=== PATIENT | male | born 1985 | race African-American/Black ===

== ENCOUNTER 2017-02-01 19:20 | Emergency (ER) | payer OTHER ==
[~2017-02-01] VITALS: Ht 175.3 cm; Wt 88.2 kg
[2017-02-01 19:26] VITALS: TEMP 37; Ht 175.3 cm; Wt 88.2 kg
[2017-02-01] MEDS ORDERED: SERT-234 PO (19:34)
[2017-02-01] MEDS ORDERED: PERP1TAB PO (19:34)
[2017-02-01] MEDS ORDERED: SERT50TA PO (19:34)
[2017-02-01] MEDS ORDERED: BND25 PO (19:34)
[2017-02-01] MEDS ORDERED: PERP1TAB11 PO (19:34)
[2017-02-01] MEDS ORDERED: IBUP-1428 PO (19:34)
--- NOTE | 2017-02-01 19:35 | EMERGENCY ROOM VISIT NOTE ---
History Report prepared by [employer]: Dorina Guido Under the Supervision of: Dr. Josemanuel Carter M.D. First contact with patient: 19:28 Chief Complaint: FALL Stated Complaint: FALL, BACK PAIN History of Present Illness The patient is a 31 year old male who presents to the Emergency Room with complaints of a fall that occurred prior to arrival. He was brought to ED via EMS from [facility]. He admits to a recent ankle injury while playing basketball this past weekend and he was given crutches to get around. Today he was walking down some stairs and fell down approximately 6 steps. He admits he hit his head during the fall, but denies any LOC. He currently complains of lower right sided back pain and states the right side of his buttocks feels numb. He denies any neck pain or abdominal pain. He denies any chest pain but admits his back pain is worse with inspiration. 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 A total of 10 systems reviewed and were otherwise negative. Past Medical & Surgical Medical Problems: (1) Depression Social History Alcohol Use: none Drug Use: none Marital Status: single Housing Status: other ([facility]) Occupation Status: unemployed Current/Historical Medications Scheduled Diphenhydramine Hcl (Benadryl), 150 MG PO HS Perphenazine (Trilafon), 4 MG PO BID Perphenazine (Trilafon), 8 MG PO BID Sertraline (Zoloft), 100 MG PO DAILY Sertraline (Zoloft), 50 MG PO HS Scheduled PRN Ibuprofen (Motrin), 800 MG PO TID PRN for Pain Allergies Coded Allergies: No Known Allergies (Unverified , 02/01/17) Physical Exam Vital Signs Date Time Temp Pulse Resp B/P (MAP) Pulse Ox O2 Delivery O2 Flow Rate FiO2 02/01/17 21:30 88 16 145/78 98 02/01/17 19:26 37.0 89 18 156/100 98 Room Air Physical Exam GENERAL: Patient is a healthy-appearing well-nourished 31 year old male HEAD: Normocephalic atraumatic EYES: Ocular movements intact pupils equal and react to light OROPHARYNX mucous membranes are moist no exudates present no erythema or edema present NECK: Supple no nuchal rigidity CHEST: Good equal expansion LUNGS: Clear and equal to auscultation CARDIAC: Normal S1 and S2 ABDOMEN: Soft nontender no guarding BACK: No CVA tenderness EXTREMITIES: No pain upon palpation normal muscle strength in all groups no clubbing cyanosis or edema NEURO: Patient is following commands is answering questions appropriately. Alert and oriented x3 Cranial Nerves 2-12 grossly intact Medical Decision & Procedures ER Provider Diagnostic Interpretation: Radiology results as stated below per my review and radiologist interpretation: CT LUMBAR SPINE WITHOUT CT DOSE: CLINICAL HISTORY: Lumbar spine pain status post trauma TECHNIQUE: Helical images were acquired in transverse plane. Reformatted sagittal and coronal images were reviewed. A dose lowering technique was utilized adhering to the principles of ALARA. CONTRAST: No contrast was administered COMPARISON STUDY: None. FINDINGS: L1-2 level: There is no evidence of significant disc bulge or focal herniation. There is no evidence of spinal or foraminal stenosis. L2-3 level: There is no evidence of significant disc bulge or focal herniation. There is no evidence of spinal or foraminal stenosis. L3-4 level: There is no evidence of significant disc bulge or focal herniation. There is no evidence of spinal or foraminal stenosis. L4-5 level: There is no evidence of significant disc bulge or focal herniation. There is no evidence of spinal or foraminal stenosis. L5-S1 level: There is no evidence of significant disc bulge or focal herniation. There is no evidence of spinal or foraminal stenosis. No fractures or subluxations are visualized. IMPRESSION: No fractures or subluxations are visualized. Electronically signed by: Bernardino Trujillo M.D. 02/01/2017 8:[address] PELVIS NO IV/ORAL CONT (CT) CT DOSE: 1120.39 mGy.cm CLINICAL HISTORY: Pelvic pain status post trauma TECHNIQUE: Helical images were acquired through the pelvis. Sagittal and coronal reformatted images were acquired. A dose lowering technique was utilized adhering to the principles of ALARA. COMPARISON STUDY: None. FINDINGS: The visualized portions of the appendix appear normal. There is no free pelvic fluid. There is no free intraperitoneal air. There is no SI joint diastases. There is no symphysis diastases. No pelvic or sacral fractures are visualized. No hip fractures are visualized. There are no dislocations. IMPRESSION: No acute fractures. Electronically signed by: Bernardino Trujillo M.D. 02/01/2017 8:17 PM Medications Administered Medications (Trade) Dose Ordered Sig/Deepak Route Start Time Stop Time Status Last Admin Dose Admin Acetaminophen (Tylenol Tab) 1,000 mg NOW STAT PO 02/01/17 19:36 02/01/17 19:38 DC 02/01/17 19:36 1,000 MG ED Course 1928: Past medical records reviewed. The patient was evaluated in room C3. A complete history and physical examination was performed. 1935: Acetaminophen 1000 mg PO. 2114: I reevaluated the patient. He is feeling well and resting comfortably. I discussed his results and discharge instructions and he verbalized complete understanding and agreement. Medical Decision Prior records/ancillary studies reviewed. Triage Nursing notes reviewed. The patient's history was concerning for traumatic injury Differential diagnosis: Etiologies such as fracture, dislocation, intra-abdominal, pneumothorax, intrathoracic , intracranial, neurologic, as well as other traumatic pathologies were entertained. This is a 31-year-old male who presents emergency department after fall downstairs. He has no bruising present. Patient was sent for CAT scan of his lower lumbar spine as well as his pelvis. C-spine was cleared using Nexus criteria. The patient does not appear to have any injuries on CAT scan. Serial abdominal examinations were performed on the patient in the emergency department and at no time did the patient exhibited a surgical abdomen. Based on these findings I feel that the patient as well as to be discharged home for follow-up with his primary care physician. Patient was in agreement with the treatment plan. Medication Reconcilliation Current Medication List: was personally reviewed by me Blood Pressure Screening Patient's blood pressure: Elevated blood pressure Blood pressure disposition: Elevated BP felt to be situational Impression Primary Impression: Fall Additional Impression: Back pain Scribe Attestation The scribe's documentation has been prepared under my direction and personally reviewed by me in its entirety. I confirm that the note above accurately reflects all work, treatment, procedures, and medical decision making performed by me. Departure Information Dispostion Home / Self-Care Patient Instructions Back Pain - [facility], ED Low Back Pain Injury, My [facility] Additional Instructions Follow up with DR Abarca You have been examined and treated today on an emergency basis only. This is not a substitute for, or an effort to provide, complete comprehensive medical care. It is impossible to recognize and treat all injuries or illnesses in a single emergency department visit. It is therefore important that you follow up closely with your PCP. Call as soon as possible for an appointment. Thank you for your time and consideration. I look forward to speaking with you again soon. Please don't hesitate to call us if you have any questions. Problem Qualifiers Primary Impression: Fall Encounter type: initial encounter Qualified Codes: W19.XXXA - Unspecified fall, initial encounter Additional Impression: Back pain Back pain location: low back pain Chronicity: acute Back pain laterality: unspecified Sciatica presence: without sciatica Qualified Codes: M54.5 - Low back pain
[2017-02-01] MEDS ORDERED: ACETAMINOPHEN 500 MG TAB PO STA (19:36)
--- NOTE | 2017-02-01 20:18 | DIAGNOSTIC IMAGING REPORT ---
CT PELVIS NO IV/ORAL CONT (CT) CT DOSE: 1120.39 mGy.cm CLINICAL HISTORY: Pelvic pain status post trauma TECHNIQUE: Helical images were acquired through the pelvis. Sagittal and coronal reformatted images were acquired. A dose lowering technique was utilized adhering to the principles of ALARA. COMPARISON STUDY: None. FINDINGS: The visualized portions of the appendix appear normal. There is no free pelvic fluid. There is no free intraperitoneal air. There is no SI joint diastases. There is no symphysis diastases. No pelvic or sacral fractures are visualized. No hip fractures are visualized. There are no dislocations. IMPRESSION: No acute fractures. Electronically signed by: Bernardino Trujillo M.D. 02/01/2017 8:17 PM Dictated Date/Time: 02/01/2017 8:14 PM
--- NOTE | 2017-02-01 20:28 | DIAGNOSTIC IMAGING REPORT ---
CT LUMBAR SPINE WITHOUT CT DOSE: CLINICAL HISTORY: Lumbar spine pain status post trauma TECHNIQUE: Helical images were acquired in transverse plane. Reformatted sagittal and coronal images were reviewed. A dose lowering technique was utilized adhering to the principles of ALARA. CONTRAST: No contrast was administered COMPARISON STUDY: None. FINDINGS: L1-2 level: There is no evidence of significant disc bulge or focal herniation. There is no evidence of spinal or foraminal stenosis. L2-3 level: There is no evidence of significant disc bulge or focal herniation. There is no evidence of spinal or foraminal stenosis. L3-4 level: There is no evidence of significant disc bulge or focal herniation. There is no evidence of spinal or foraminal stenosis. L4-5 level: There is no evidence of significant disc bulge or focal herniation. There is no evidence of spinal or foraminal stenosis. L5-S1 level: There is no evidence of significant disc bulge or focal herniation. There is no evidence of spinal or foraminal stenosis. No fractures or subluxations are visualized. IMPRESSION: No fractures or subluxations are visualized. Electronically signed by: Bernardino Trujillo M.D. 02/01/2017 8:27 PM Dictated Date/Time: 02/01/2017 8:25 PM
[2017-02-01 21:30] VITALS: BP 145/78; PULSE 88; O2SAT 98
== END 2017-02-01 21:31 | disposition home or self-care (01) ==
LOC: EDBD 19:20 → C.EDC 19:24
DX: M54.9 Dorsalgia, unspecified (principal); W10.8XXA Fall (on) (from) other stairs and steps, initial encounter; F32.9 Major depressive disorder, single episode, unspecified; Z79.899 Other long term (current) drug therapy